=== PATIENT | female | born 1980 | race Caucasian/White ===

== ENCOUNTER 2020-06-13 14:00 | Observation (INO) | payer SELFPAY ==
[~2020-06-13] VITALS: Ht 154.9 cm; Wt 74.8 kg
[2020-06-13 14:41] VITALS: BP 92/51
[2020-06-13] MEDS ORDERED: PROMETHAZINE 25 MG/ML VIAL IM PRN (15:25)
[2020-06-13] MEDS ORDERED: FAMOTIDINE 20 MG TAB ONE (16:18)
[2020-06-13 16:41] LABS: BASOPHILS # (AUTO) 0.1 K/uL (0.00-0.22); BASOPHILS % (AUTO) 0.8 % (0.0-2.0); EOSINOPHILS # (AUTO) 0.7 K/uL (0-0.4); EOSINOPHILS % (AUTO) 4.4 % (0.0-4.0); HEMATOCRIT 30.3 % (36-48); HEMOGLOBIN 10.2 g/dL (12.0-16.0); LYMPHOCYTES # (AUTO) 1.8 K/uL (2.5-16.5); LYMPHOCYTES % (AUTO) 11.2 % (20.5-51.1); MEAN CORPUSCULAR HEMOGLOBIN 31 pg (27-31); MEAN CORPUSCULAR HGB CONC 34 g/dL (33-37); MEAN CORPUSCULAR VOLUME 92.1 fL (80-94); MONOCYTES # (AUTO) 0.7 K/uL (0.8-1.0); MONOCYTES % (AUTO) 4.5 % (1.7-9.3); NEUTROPHILS # (AUTO) 12.3 K/uL (1.8-7.7); NEUTROPHILS % (AUTO) 79.1 % (42.2-75.2); PLATELET COUNT (AUTO) 247 K/uL (140-450); RED BLOOD CELL COUNT(AUTO) 3.29 MIL/uL (4.20-5.40); RED CELL DISTRIBUTION WIDTH 13.5 % (11.6-13.7); WHITE BLOOD COUNT (AUTO) 15.6 K/uL (4.8-10.8)
[2020-06-13] MEDS: LACTATED RINGERS 1,000 ML IV SCH (17:14)
[2020-06-13 17:15] LABS: ALBUMIN 2.4 g/dL (3.4-5.0); ANION GAP 10.5 (8-16); CARBON DIOXIDE 25.7 mmol/L (21-32); CREATININE 0.6 mg/dL (0.6-1.3); POTASSIUM 4.2 mmol/L (3.5-5.1); TOTAL BILIRUBIN 0.2 mg/dL (0.0-1.0)
[2020-06-13 17:38] LABS: APPEARANCE,URINE SL CLOUDY (CLEAR); BILIRUBIN,URINE NEGATIVE (NEGATIVE); BLOOD, URINE NEGATIVE (NEGATIVE); COLOR,URINE YELLOW (YELLOW); LEUKOCYTE ESTERASE ,URINE 1+ (NEGATIVE); NITRITE, URINE NEGATIVE (NEGATIVE); UGLUCOSE NEGATIVE (NEGATIVE)
[2020-06-13] MEDS: FAMOTIDINE 20 MG/2 ML VIAL IV SCH (17:39)
[2020-06-13] MEDS ORDERED: ACETAMINOPHEN 325 MG TAB PO PRN (17:40)
[2020-06-13] MEDS ORDERED: PANTOPRAZOLE 40 MG INJ VIAL IVP SCH (17:40)
[2020-06-13] MEDS ORDERED: ACETAMINOPHEN 325 MG TAB ONE (17:41)
[2020-06-13 17:44] LABS: BARBITURATE, URINE NEGATIVE ng/ml (NEG <=200); BENZODIAZEPINE, URINE NEGATIVE ng/mL (NEG <=200); CANNABINOID, URINE NEGATIVE ng/mL (NEG <=50); COCAINE, URINE NEGATIVE ng/mL (NEG <=300); OPIATE, URINE NEGATIVE ng/mL (NEG <=2000); PHENCYCLIDINE SCREEN,URINE NEGATIVE ng/mL (NEG <=25)
[2020-06-13 17:59] LABS: RBC,URINE 0-5 /HPF (0-5); YEAST,URINE Few /HPF (None Seen)
[2020-06-13] MEDS ORDERED: NALBUPHINE 10 MG/ML AMP IVP PRN (19:55)
[2020-06-13] MEDS ORDERED: NALBUPHINE 10 MG/ML AMP ONE (20:04)
[2020-06-14] MEDS: LACTATED RINGERS 1,000 ML IV SCH ×2 (01:36→09:33)
--- NOTE | 2020-06-14 08:56 | NUR ---
PATIENT HAS BEEN SCREENED AND CATEGORIZED LOW NUTRITION RISK. PATIENT WILL BE SEEN WITHIN 7 DAYS OF ADMISSION. 06/20/[address]
[2020-06-14] MEDS ORDERED: PANTOPRAZOLE 40 MG INJ VIAL IVP SCH ×2 (09:00)
[2020-06-14 09:07] LABS: HEPATITIS B SURFACE ANTIGEN Negative (Negative)
[2020-06-14] MEDS: FAMOTIDINE 20 MG/2 ML VIAL IV SCH (09:53)
[2020-06-14] MEDS ORDERED: NITROFURANTOIN 100 MG CAP PO SCH ×2 (10:00→17:00)
--- NOTE | 2020-06-14 15:22 | NUR ---
Social Service Note: EVENT OPERATIONS MANAGER received call from pt's nurse; pt requesting to speak with medical social worker. EVENT OPERATIONS MANAGER met with pt at bedside; pt appears well groomed, alert/oriented x4, pt cooperative with assessment. Pt states that she came to the hospital for evaluation due to not feeling well over the last few days. Pt states that she was visiting her step-father in [place] when she started to not feel well, pt reports going outside to find a police and fire dispatcher and asked for a ambulance to be called. Pt states that she does not have transportation or a phone. When asked where pt lives pt became very vague with her responses. EVENT OPERATIONS MANAGER asked pt about the address provided on the facesheet; pt states that she does not stay there; pt states that her brother lives in [place] and she uses that as her mailing address; EVENT OPERATIONS MANAGER asked for the brother's address; pt stated she could not remember the address. EVENT OPERATIONS MANAGER asked pt for the address where she was in [place]; pt could not provide an address. EVENT OPERATIONS MANAGER asked pt where she normally stays, pt could not provide a location/address. Pt states that she was homeless and then has been staying with family/friends. When asked where pt will go upon discharge pt states that she will maybe go to her step-fathers or her brothers. 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 EVENT OPERATIONS MANAGER asked pt if she could call her family to arrange for a ride upon discharge. Pt asked EVENT OPERATIONS MANAGER for assistance with her [employer]. Pt states that she applied online and that her brother has a social workers name/number and needs to provide the medical social worker with her estimated delivery date. Pt cannot provide EVENT OPERATIONS MANAGER with the name/number for the medical social worker. EVENT OPERATIONS MANAGER inquired if pt has had any care; pt stated that all her care has been provided at [facility] and [facility]. Pt states that due to her insurance status she is not being followed by a physician. Pt states that she used to have [employer] but it is not active now. Pt states that her [employer] shows that she has been incarcerated. Pt denies being incarcerated. Pt states that there has been some sort of mixup. EVENT OPERATIONS MANAGER encouraged pt to continue to work with the [employer] medical social worker to correct pt's [employer]. EVENT OPERATIONS MANAGER provided pt with homeless assistance resources and family planning resources. EVENT OPERATIONS MANAGER encouraged pt to contact family to arrange for a ride home from the hospital. Pt states that she wants to stay one more night so that her family can pick her up in the morning and then someone will be home with her. EVENT OPERATIONS MANAGER spoke with pt's nurse and provided updated. Turf Sales Person will remain available for support and will follow up as needed.
[2020-06-14] MEDS ORDERED: CLOTRIMAZOLE 1% 30 GM CRM TUBE TP SCH (21:00)
== END 2020-06-14 16:45 | disposition home or self-care (01) ==
LOC: MFCC 14:00
PROVIDERS: ADMIT Obstetrics & Gynecology; ATTEND Obstetrics & Gynecology
DX: O21.2 Late vomiting of pregnancy (principal); K92.0 Hematemesis; Z20.822 Contact with and (suspected) exposure to COVID-19; O26.893 Other specified pregnancy related conditions, third trimester; R10.13 Epigastric pain; O99.891 Other specified diseases and conditions complicating pregnancy; M54.5 Low back pain; O09.513 Supervision of elderly primigravida, third trimester; Z3A.28 28 weeks gestation of pregnancy
CPT/HCPCS: 36415; 76770; 76805; 80053; 80305; 81001; 85025; 86592; 86762; 86886; 86900; 86901; 87086; 87340; 96361; 96372; 96374; 96375; 96376; C9113; G0378; J2300; J2550; J3490; J7120

== ENCOUNTER 2020-06-15 19:40 | Observation (INO) | payer MEDICAID, SELFPAY ==
[~2020-06-15] VITALS: Ht 154.9 cm; Wt 68.0 kg
[2020-06-15] MEDS ORDERED: ZOLPIDEM 5 MG TAB PO PRN (22:25)
--- NOTE | 2020-06-16 09:36 | NUR ---
PATIENT HAS BEEN SCREENED AND CATEGORIZED LOW NUTRITION RISK. PATIENT WILL BE SEEN WITHIN 7 DAYS OF ADMISSION. 06/22/[address]
== END 2020-06-16 14:15 | disposition home or self-care (01) ==
LOC: MLD 19:40 → MFCC 21:50
PROVIDERS: ADMIT Obstetrics & Gynecology; ATTEND Obstetrics & Gynecology
DX: O26.893 Other specified pregnancy related conditions, third trimester (principal); R10.13 Epigastric pain; R42 Dizziness and giddiness; Z20.828 Contact with and (suspected) exposure to other viral communicable diseases; O21.2 Late vomiting of pregnancy; O99.891 Other specified diseases and conditions complicating pregnancy; M54.5 Low back pain; O09.523 Supervision of elderly multigravida, third trimester; Z3A.28 28 weeks gestation of pregnancy
CPT/HCPCS: 87426; G0378

== ENCOUNTER 2020-06-19 20:20 | Observation (INO) | payer OTHER, SELFPAY ==
[~2020-06-19] VITALS: Ht 154.9 cm; Wt 77.1 kg
[2020-06-19 20:50] VITALS: BP 110/60
[2020-06-19] MEDS ORDERED: PROMETHAZINE 25 MG/ML VIAL IM SCH (20:55)
[2020-06-19] MEDS ORDERED: NALBUPHINE 10 MG/ML AMP IM SCH (20:55)
[2020-06-19] MEDS ORDERED: NALBUPHINE 10 MG/ML AMP ONE (21:03)
[2020-06-19] MEDS ORDERED: PROMETHAZINE 25 MG/ML VIAL ONE (21:03)
[2020-06-19] MEDS ORDERED: PNV91TAB8 PO (22:38)
== END 2020-06-19 23:50 | disposition home or self-care (01) ==
LOC: MLD 20:20
PROVIDERS: ADMIT Obstetrics & Gynecology; ATTEND Obstetrics & Gynecology
DX: O26.893 Other specified pregnancy related conditions, third trimester (principal); R10.13 Epigastric pain; R20.0 Anesthesia of skin; O21.2 Late vomiting of pregnancy; O99.891 Other specified diseases and conditions complicating pregnancy; M79.661 Pain in right lower leg; M54.5 Low back pain; O09.513 Supervision of elderly primigravida, third trimester; Z88.0 Allergy status to penicillin; Z88.8 Allergy status to other drugs, medicaments and biological substances; Z59.0 Homelessness; Z3A.28 28 weeks gestation of pregnancy
CPT/HCPCS: 81000; 96372; G0378; J2300; J2550